=== PATIENT | female | born 1970 | race Caucasian/White ===

== ENCOUNTER 2016-05-10 17:04 | Inpatient (IN) | payer OTHER ==
[~2016-05-10] VITALS: Ht 157.5 cm; Wt 77.0 kg
[~2016-05-10 17:04] MED LIST: FLUC150T17 PO; HYDR-3498 PO; IBUP-1542 PO; LORA-441 PO; ONDA4TAB8 PO; ULT50 PO
[2016-05-10 21:21] LABS: ADD UMIC YES; URINE BILIRUBIN (Dip) NEGATIVE (NEGATIVE); URINE BLOOD (Dip) TRACE (NEGATIVE); URINE COLOR LT. YELLOW (YELLOW); URINE GLUCOSE (Dip) NEGATIVE (NEGATIVE); URINE KETONES (Dip) NEGATIVE (NEGATIVE); URINE LEUKOCYTE ESTERASE (Dip) TRACE (NEGATIVE); URINE NITRITE (Dip) NEGATIVE (NEGATIVE); URINE TOTAL PROTEIN (Dip) NEGATIVE (NEGATIVE); URINE UROBILINOGEN (Dip) 0.2 E.U./dL (0.1-1.0)
[2016-05-10 21:46] LABS: MUCUS,URINE FEW; SQUAMOUS EPITHELIAL CELL,UR FEW; URINE RBCS 0-2 /HPF (0)
[2016-05-10 21:47] LABS: BACTERIA,URINE FEW
[2016-05-10 22:20] LABS: BASOPHIL # 0.1 10^3/ul (0.0-0.1); BASOPHILS % 0.6 % (0.0-2.0); EOSINOPHILS # 0.1 10^3/ul (0.0-0.5); HEMATOCRIT 37.9 % (37.0-47.0); HEMOGLOBIN 12.6 g/dl (12.0-16.0); LYMPHOCYTES # 2.6 10^3/ul (0.8-2.9); LYMPHOCYTES % 27.8 % (15.0-51.0); MEAN CORPUSCULAR HEMOGLOBIN 29.9 pg (29.0-33.0); MEAN CORPUSCULAR HGB CONC 33.2 g/dl (32.0-37.0); MEAN CORPUSCULAR VOLUME 90.1 fl (82.0-101.0); MONOCYTE # 0.7 10^3/ul (0.3-0.9); MONOCYTES % 7.6 % (0.0-11.0); PLATELET COUNT 309 10^3/UL (140-440); RED BLOOD COUNT 4.21 10^6/ul (4.20-5.40); RED CELL DISTRIBUTION WIDTH 13.3 % (11.5-14.5); UNCORRECTED WBC 9.5 10^3/ul (4.8-10.8); WHITE BLOOD COUNT 9.5 10^3/ul (4.8-10.8)
[2016-05-10 22:21] LABS: CONDITION 1
[2016-05-10 22:36] LABS: ALBUMIN 4.3 g/dl (3.3-4.9)
[2016-05-10 22:39] LABS: BILIRUBIN,INDIRECT 0.1 mg/dl (0-1.1); BILIRUBIN,TOTAL 0.1 mg/dl (0.2-1.3); CREATININE 0.55 mg/dl (0.44-1.00)
[2016-05-10 22:40] LABS: ALBUMIN/GLOBULIN RATIO 1.22; CALCIUM 9.4 mg/dl (8.4-10.2); TOTAL PROTEIN 7.8 g/dl (6.1-8.1)
--- NOTE | 2016-05-10 22:48 | RADRPT ---
PROCEDURE: Ultrasound of the abdomen. CLINICAL INDICATION: Right upper quadrant pain. TECHNIQUE: Sonographic images of the abdomen were performed. COMPARISON: CT scan 05/25/2014 FINDINGS: Liver: There is a 1.7 x 1.6 x 2 cm cyst within the central left hepatic lobe. There is a 1.8 x 1.7 x 1.4 cm mildly echogenic lesion within the right hepatic lobe, likely a hemangioma, as seen on pre vious CT. The liver is otherwise normal in echogenicity and size, measuring approximately 16.7 cm. T he hepatic veins and portal veins are patent with appropriate directional flow. No intrahepatic duct al dilatation is seen. Gallbladder: Several stones are noted within the gallbladder. There is gallbladder wall thickening measuring up to 7.5 mm. No pericholecystic free fluid is seen. The common duct measures 4.0 mm. Pancreas: There is limited evaluation of the pancreatic body and tail. The visualized portions of the pancreas are unremarkable. Kidneys: The right kidney measures 9.6 x 3.8 x 4.6 cm. There is normal corticomedullary differentia tion. There is no evidence of renal calculus or hydronephrosis. IVC: The visualized portion of the inferior vena cava is unremarkable. Aorta: Normal in size. Free fluid: None. IMPRESSION: Cholelithiasis with gallbladder wall thickening suggestive of cholecystitis in the appropriate clini rose setting. Right hepatic hemangioma and left hepatic cyst. RPTAT: HIKT .Atul Coronel MD, Date Time Electronically viewed and signed by .Atul Coronel MD, on 05/10/2016 22:48 .T/
--- NOTE | 2016-05-10 23:51 | ERA ---
ER Documentation Chief Complaint Date/Time DATE: 05/10/16 TIME: 23:50 Chief Complaint HAD ABDOMINAL DISTENTION AND NOW HAS DARK STOOL NOW HPI This is a 46-year-old woman with abdominal distention and possible dark stools over the past 2-3 days. She denies any fevers or chills. Abdominal pain is located mostly in the right upper quadrant epigastric region. N mild nausea but no vomiting. No fevers no chills. No other current complaints. ROS All systems reviewed and are negative except as per history of present illness. Medications Home Meds Active Scripts Fluconazole* (Diflucan*) 150 Mg Tablet, 150 MG PO ONCE, #1 TAB Prov:REY TAVERA NP 01/03/16 Ibuprofen* (Motrin*) 600 Mg Tab, 600 MG PO Q6, #30 TAB Prov:REY TAVERA NP 01/03/16 Hydrocodone Bit-Acetaminophen* ([place]*) 5-325 Mg Tab, 1 TAB PO Q6 Y for PAIN, # 20 TAB Prov:AJCK HUNTER PA-C 11/27/15 Lorazepam* (Ativan*) 0.5 Mg Tablet, 0.5 MG PO Q8, #10 TAB Prov:SAURAV DOS SANTOS PA-C 11/27/15 Ondansetron Hcl* (Zofran*) 4 Mg Tablet, 4 MG PO Q6H for NAUSEA AND/OR VOMITING, #20 TAB Prov:SAURAV DOS SANTOS PA-C 11/27/15 Ibuprofen* (Motrin*) 600 Mg Tab, 600 MG PO Q6H Y for PAIN for 10 Days, TAB Prov:LELIA HAY NP 07/12/15 Tramadol HCl (Tramadol HCl) 50 Mg Tablet, 50 MG PO BID, #20 TAB Prov:LELIA HAY I. [employer] 07/12/15 Allergies Allergies: Coded Allergies: No Known Allergies (Unverified Allergy, Unknown, 09/16/13) PMhx/Soc History of Surgery: No Hx Respiratory Disorders: Yes (ASTHMA) Hx Alcohol Use: No Hx Substance Use: No Hx Tobacco Use: No Physical Exam Vitals Vital Signs Date Time Temp Pulse Resp B/P Pulse Ox O2 Delivery O2 Flow Rate FiO2 05/10/16 17:23 98.4 78 18 124/74 100 Physical Exam Const: [] Head: Atraumatic Eyes: Normal Conjunctiva ENT: Normal External Ears, Nose and Mouth. Neck: Full range of motion..~ No meningismus. Resp: Clear to auscultation bilaterally Cardio: Regular rate and rhythm, no murmurs Abd: Soft, non tender, non distended. Normal bowel sounds Skin: No petechiae or rashes Back: No midline or flank tenderness Ext: No cyanosis, or edema Neur: Awake and alert Psych: Normal Mood and Affect Result Diagram: 05/10/16220405/10/162204 Results 24 hrs Laboratory Tests Test 05/10/16 21:04 05/10/16 22:05 Urine Bacteria FEW Urine Bilirubin NEGATIVE Urine Clarity CLEAR Urine Color LT. YELLOW Urine Glucose NEGATIVE% Urine Hemoglobin TRACE Urine Ketones NEGATIVE Urine Leukocyte Esterase TRACE Urine Microscopic RBC 0-2/HPF Urine Microscopic WBC 0-2/HPF Urine Mucus FEW Urine Nitrite NEGATIVE Urine Specific [place] 1.025 Urine Squamous Epithelial Cells FEW Urine Total Protein NEGATIVE Urine Urobilinogen 0.2 E.U./dL Urine pH 6.0 Alanine Aminotransferase (ALT/SGPT) 24IU/L Albumin 4.3g/dl Albumin/Globulin Ratio 1.22 Alkaline Phosphatase 75IU/L Anion Gap 18 Aspartate Amino Transf (AST/SGOT) 18IU/L Basophils # 0.110^3/ul Basophils % 0.6% Blood Urea Nitrogen 12mg/dl Calcium Level 9.4mg/dl Carbon Dioxide Level 26mmol/L Chloride Level 104mmol/L Creatinine 0.55mg/dl Direct Bilirubin 0.00mg/dl Eosinophils # 0.110^3/ul Eosinophils % 1.0% Globulin 3.50g/dl Glucose Level 89mg/dl Hematocrit 37.9% Hemoglobin 12.6g/dl Indirect Bilirubin 0.1mg/dl Lipase 128U/L Lymphocytes # 2.610^3/ul Lymphocytes % 27.8% Mean Corpuscular Hemoglobin 29.9pg Mean Corpuscular Hemoglobin Concent 33.2g/dl Mean Corpuscular Volume 90.1fl Mean Platelet Volume 8.0fl Monocytes # 0.710^3/ul Monocytes % 7.6% Neutrophils # 6.010^3/ul Neutrophils % 63.0% Nucleated Red Blood Cells # 0.010^3/ul Nucleated Red Blood Cells % 0.0/100WBC Platelet Count 78228^3/UL Potassium Level 4.0mmol/L Red Blood Count 4.2110^6/ul Red Cell Distribution Width 13.3% Sodium Level 144mmol/L Total Bilirubin 0.1mg/dl Total Protein 7.8g/dl White Blood Count 9.510^3/ul Current Medications Medications (Trade) Dose Ordered Sig/Edwige Route PRN Reason Start Time Stop Time Status Last Admin Dose Admin Potassium Chloride/Dextrose/ Sod Cl (D5-1/2ns + KCl 20 Meq) 1,000 ml @ 100 mls/hr Q10H IV 05/10/16 23:42 IV Flush (NS 3 ml) 3 ml PER PROTOCOL IV 05/11/16 00:00 Ondansetron HCl (Zofran Inj) 4 mg Q6H PRN IV NAUSEA AND/OR VOMITING 05/11/16 00:00 Acetaminophen (Tylenol Tab) 650 mg Q6H PRN PO PAIN LEVEL 1-3 OR FEVER 05/11/16 00:00 Acetaminophen/ Hydrocodone Bitart ([place] (5/325)) 1 tab Q6H PRN PO MODERATE PAIN LEVEL 4-6 05/11/16 00:00 Morphine Sulfate (morphine) 2 mg Q4H PRN IV SEVERE PAIN LEVEL 7-10 05/11/16 00:00 Docusate Sodium (Colace) 100 mg Q12H PRN PO CONSTIPATION 05/11/16 00:00 Zolpidem Tartrate 5 mg 5 mg QHS PRN PO SLEEP 05/11/16 00:00 UNV Piperacillin Sod/ Tazobactam Sod (Zosyn 3.375gm/ 100 ml (Pmx)) 100 ml @ 200 mls/hr Q6 IVPB 05/11/16 00:00 Procedures/MDM Right upper quadrant ultrasound shows no evidence of cholecystitis. Please radiologist full dictation for report. Medical decision making: Is a 46 year female abdominal pain. Patient is guaiac negative. His H&H is stable. She does have evidence of cholecystitis. Patient will be admitted to hospitalist Dr. Saucedo. Dr. Wiggins will consult from surgery. Departure Diagnosis: Primary Impression: Abdominal pain Qualified Code: R10.11 - Right upper quadrant abdominal pain Additional Impression: Cholecystitis Condition: Serious RADAMES VERDIN May 10, 2016 23:51
[2016-05-11] MEDS ORDERED: DOCUSATE SODIUM 100 MG CAP PO PRN
[2016-05-11] MEDS ORDERED: NACL 0.9% 3 ML SYG IV SCH
[2016-05-11] MEDS ORDERED: ZOLPIDEM 5 MG TAB PO PRN
[2016-05-11] MEDS ORDERED: ACETAMINOPHEN 325 MG TAB PO PRN
[2016-05-11 00:21] VITALS: Ht 157.5 cm; Wt 77.0 kg
[2016-05-11 00:22] VITALS: BP 120/60; PULSE 68; RESP 18
[2016-05-11] MEDS: D5W-0.45 NACL + KCL 20 MEQ 1,000 ML IV SCH ×3 (00:58→14:57)
[2016-05-11] MEDS: PIPER-TAZO 3.375 GM IV (PMX) 100 ML IVPB SCH ×5 (00:58→23:05)
[2016-05-11] MEDS: morphine 2 MG INJ IV PRN (02:04)
[2016-05-11 05:36] LABS: POTASSIUM 3.6 mmol/L (3.5-5.1)
[2016-05-11 05:38] LABS: CREATININE 0.57 mg/dl (0.44-1.00)
[2016-05-11 05:39] LABS: CALCIUM 8.7 mg/dl (8.4-10.2); CHOL/HDL RATIO 4.7 RATIO; MAGNESIUM 1.9 mg/dl (1.7-2.5)
[2016-05-11 05:41] LABS: BASOPHILS % 0.3 % (0.0-2.0); EOSINOPHILS # 0.1 10^3/ul (0.0-0.5); EOSINOPHILS % 1.6 % (0.0-7.0); HEMATOCRIT 36.4 % (37.0-47.0); HEMOGLOBIN 12.3 g/dl (12.0-16.0); LYMPHOCYTES # 2.9 10^3/ul (0.8-2.9); LYMPHOCYTES % 32.5 % (15.0-51.0); MEAN CORPUSCULAR HGB CONC 33.7 g/dl (32.0-37.0); MEAN CORPUSCULAR VOLUME 89.2 fl (82.0-101.0); MEAN PLATELET VOLUME 8.3 fl (7.4-10.4); MONOCYTE # 0.6 10^3/ul (0.3-0.9); MONOCYTES % 7.3 % (0.0-11.0); NEUTROPHIL # 5.2 10^3/ul (1.6-7.5); NEUTROPHILS % 58.3 % (39.0-77.0); PLATELET COUNT 285 10^3/UL (140-440); RED BLOOD COUNT 4.08 10^6/ul (4.20-5.40); RED CELL DISTRIBUTION WIDTH 13.3 % (11.5-14.5); UNCORRECTED WBC 8.9 10^3/ul (4.8-10.8); WHITE BLOOD COUNT 8.9 10^3/ul (4.8-10.8)
[2016-05-11 05:44] LABS: CONDITION 1
[2016-05-11 06:41] VITALS: BP 105/55; PULSE 75; RESP 18
--- NOTE | 2016-05-11 07:03 | HP ---
DATE OF ADMISSION: 05/10/2016 TIME: 6:15 a.m. CHIEF COMPLAINT: Abdominal pain. HISTORY OF PRESENT ILLNESS: The patient is a 46-year-old female with a history of known cholelithia sis diagnosed approximately 2-1/2 years ago. The patient was supposed to get a laparoscopic cholecy stectomy, but was lost to follow up. The patient has had 3 episodes of severe right upper quadrant pain since her diagnosis 2-1/2 years ago, but this current third episode is worse than prior episode s. She does report some darkening of her stool as well, but denies any nausea or vomiting. She sta angelo that the pain radiates to her right back and into her shoulder. In the ED, the patient had a ga llbladder ultrasound that showed cholelithiasis with gallbladder wall thickening suggestive of leila cystitis. The patient has no other complaints at this time. PAST MEDICAL HISTORY: Cholelithiasis. PAST SURGICAL HISTORY: Denies. HOME MEDICATIONS: 1. Diflucan. 2. [place]. 3. Ibuprofen. 4. Ativan. 5. Zofran. 6. Tramadol. ALLERGIES: NO KNOWN DRUG ALLERGIES. FAMILY HISTORY: Grandmother with pancreatic cancer. SOCIAL HISTORY: Denies any alcohol, tobacco, or drug abuse. REVIEW OF SYSTEMS: A 12-point review of systems negative except for that as in HPI. PHYSICAL EXAMINATION: VITAL SIGNS: Temperature is 97.7, pulse 68, respiratory rate 18, BP is 120/60, saturation 98% on ro om air. GENERAL: No acute distress, alert and oriented. HEENT: Normocephalic, atraumatic. LUNGS: Clear to auscultation. CARDIOVASCULAR: Regular rate and rhythm. ABDOMEN: Tender to palpation in the right upper quadrant, nondistended, soft. EXTREMITIES: No clubbing, cyanosis, or edema. LABORATORIES: White count is 8.9, hemoglobin 12.3, platelets are 285, chemistry within normal limit s. UA within normal limits except for trace leukocyte esterase, WBC . DIAGNOSTICS: Gallbladder ultrasound shows cholelithiasis with likely cholecystitis. ASSESSMENT AND PLAN: 1. Abdominal pain, likely secondary to cholecystitis. The patient has no fever, no white count, do es have a known history of cholelithiasis and has significant pain in the right upper quadrant. I s tarted the patient on Zosyn. Dr. Wiggins of surgery has been consulted. We will follow up with his recommendations. We will treat pain with morphine as needed. 2. Melena. The patient does report darkening of her stool. She denies any upper gastrointestinal bleed. She does take Motrin for pain control. We will check a fecal occult blood test. Consider g etting a GI consultation if the melena persists. 3. Prophylaxis with SCDs. Dictated By: JANUSZ GARVEY MD BS/NTS Conf#: [id number] DID#: [id number]
[2016-05-11 07:15] VITALS: BP 98/57; RESP 18
[2016-05-11] MEDS: ONDANSETRON 4 MG INJ IV PRN ×2 (09:18→15:36)
[2016-05-11 09:33] VITALS: BP 99/56; PULSE 72; RESP 18
--- NOTE | 2016-05-11 14:58 | QN ---
Documentation Comment Reviewed labs. Examined patient. Appropriate orders put in. Plan of care was explained to the patient. Case discussed with Dr. Gan. MIKE SHANKAR NP May 11, 2016 14:58
[2016-05-11] MEDS: PANTOPRAZOLE 40 MG INJ IV SCH (17:49)
[2016-05-11 20:09] VITALS: BP 100/53; RESP 18
[2016-05-12] VITALS (19 sets, daily range): BP systolic 90–131; BP diastolic 55–69; PULSE 65–80; RESP 12–75
[2016-05-12] MEDS: D5W-0.45 NACL + KCL 20 MEQ 1,000 ML IV SCH ×3 (01:57→09:57)
[2016-05-12] MEDS: morphine 2 MG INJ IV PRN ×2 (03:30→16:02)
--- NOTE | 2016-05-12 03:54 | CONS ---
DATE OF ADMISSION: 05/10/2016 DATE OF CONSULTATION: 05/11/2016 TYPE OF CONSULTATION: Surgical. REFERRING PHYSICIAN: Dr. Rafita Hsieh CHIEF COMPLAINT: 1. Abdominal pain. 2. Cholelithiasis. 3. Cholecystitis. 4. BMI 31. HISTORY OF PRESENT ILLNESS: Ms. Darlene Aguilar is a 46-year-old female with 4-year history of gallstone s that have been symptomatic who has had pain on and off; however, she presents recently with 2 to 3 days of abdominal pain and bloating associated with dark stools. She denies any fevers or chills. She denies any vomiting but has nausea. No chest pain, shortness of breath. No visual or neurolog ic changes. No dysuria or vaginal discharge. No trauma or sick contacts. Her pain is crampy, most ly in the epigastric and right upper quadrant, without radiation. In the emergency room, she had labs which were mostly normal; however, ultrasound shows gallbladder wall thickening with cholelithiasis. The patient is admitted, and surgical consult is obtained for further evaluation and treatment. PAST MEDICAL HISTORY: 1. Cholelithiasis, symptomatic. 2. Cholecystitis, probably chronic. 3. BMI of 31. 4. Asthma. 5. Right hepatic hemangioma. 6. Left hepatic cyst. 7. Positive UA with possible UTI. PAST SURGICAL HISTORY: Denies. MEDICATIONS: As per MAR. ALLERGIES: NONE. SOCIAL HISTORY: Denies alcohol, drugs, or tobacco. FAMILY HISTORY: Grandmother with pancreatic cancer. REVIEW OF SYSTEMS: A 12-point review of systems is negative other than what is mentioned in HPI. N o weight changes. PHYSICAL EXAMINATION: VITAL SIGNS: Temperature is 97.1, pulse 70, blood pressure 99/56, saturating 98% on room air. BMI is 31. GENERAL: No acute distress, obese, comfortable. HEENT: Pupils equal and reactive. No scleral icterus. Mucous membranes are moist. NECK: Supple without JVD. No crepitus. Trachea is midline. PULMONARY: Normal respiratory effort. No wheezing. Nonlabored. CARDIAC: S1, S2 present, regular and normal rhythm. ABDOMEN: Minimal tenderness in the epigastric and right upper quadrant without Cason's. No reboun d or guarding. Obese. EXTREMITIES: No edema. VASCULAR: Cap refill less than 2 seconds. NEUROLOGIC: Alert, oriented, moves all 4 extremities grossly. PSYCHIATRIC: Normal mood and affect. LYMPHATIC: Normal cervical and inguinal lymph nodes, nonpalpable. LABORATORY DATA: WBCs is 8.9, hemoglobin is 12. LFTs are normal. UA with positive trace leukocyte esterase. RADIOGRAPHIC: As per chart and HPI. ASSESSMENT AND PLAN: Ms. Darlene Aguilar is a 46-year-old female. 1. Abdominal pain secondary to symptomatic cholelithiasis and possible mild cholecystitis. Continu e antibiotics, IV fluids, and encouraged to undergo laparoscopic cholecystectomy. The patient is op en to having surgery during this hospitalization. 2. Dark stool with possible melena. Recommend GI consultation and stool studies. We will await ev aluation of that prior to surgical treatment of her gallbladder disease. 3. BMI of 31. The patient is highly encouraged to improve her diet and exercise to improve her [facility] health status. 4. Asthma. Continue medical management. 5. Trace leukocyte esterase on UA with probable urinary tract infection. Continue antibiotics. Thank you very much for consulting me in this patient's care. Dictated By: HENRRY BROWN/RAYSHAWN Conf#: [id number] DID#: [id number]
--- NOTE | 2016-05-12 04:15 | RADRPT ---
PROCEDURE: MRCP. CLINICAL INDICATION: Evaluate for choledocholithiasis. TECHNIQUE: MRCP was performed on a high-resolution, high Luann field strength scanner. Patient wa s examined without contrast. 3-D coronal rotating MIP images of the biliary tree are available for review. COMPARISON: Right upper quadrant abdominal ultrasound of 05/10/2016 FINDINGS: There is cholelithiasis. There is diffuse gallbladder wall edema apparent. The biliary tree is not d ilated. No intrahepatic nor extrahepatic biliary dilatation is present. No filling defect or choled ocholithiasis is seen. There is no extrahepatic bile duct stricture or obstruction seen. The pancrea tic duct, as visualized, is unremarkable. The patient has known hepatic cavernous hemangiomas and c yst. Small umbilical hernia containing fat. IMPRESSION: Cholelithiasis. Diffuse gallbladder wall edema. No choledocholithiasis seen. Please see above. RPTAT: HJES .Satinder Armenta MD, MD Date Time Electronically viewed and signed by .Satinder Armenta MD, on 05/12/2016 04:15 .S/
[2016-05-12] MEDS: PIPER-TAZO 3.375 GM IV (PMX) 100 ML IVPB SCH ×3 (05:18→17:33)
[2016-05-12] MEDS: PANTOPRAZOLE 40 MG INJ IV SCH ×2 (05:18→17:36)
[2016-05-12 05:26] LABS: BASOPHILS % 0.4 % (0.0-2.0); EOSINOPHILS # 0.1 10^3/ul (0.0-0.5); EOSINOPHILS % 1.3 % (0.0-7.0); HEMATOCRIT 35.1 % (37.0-47.0); HEMOGLOBIN 11.9 g/dl (12.0-16.0); LYMPHOCYTES # 2.5 10^3/ul (0.8-2.9); MEAN CORPUSCULAR HEMOGLOBIN 30.2 pg (29.0-33.0); MEAN CORPUSCULAR HGB CONC 33.9 g/dl (32.0-37.0); MEAN CORPUSCULAR VOLUME 89.3 fl (82.0-101.0); MEAN PLATELET VOLUME 8.4 fl (7.4-10.4); MONOCYTE # 0.6 10^3/ul (0.3-0.9); MONOCYTES % 8.7 % (0.0-11.0); NEUTROPHIL # 4.1 10^3/ul (1.6-7.5); NEUTROPHILS % 55.6 % (39.0-77.0); PLATELET COUNT 292 10^3/UL (140-440); RED BLOOD COUNT 3.93 10^6/ul (4.20-5.40); RED CELL DISTRIBUTION WIDTH 13.2 % (11.5-14.5); UNCORRECTED WBC 7.3 10^3/ul (4.8-10.8); WHITE BLOOD COUNT 7.3 10^3/ul (4.8-10.8)
[2016-05-12 05:28] LABS: ALBUMIN 3.4 g/dl (3.3-4.9)
[2016-05-12 05:29] LABS: POTASSIUM 3.9 mmol/L (3.5-5.1)
[2016-05-12 05:31] LABS: CONDITION 1
[2016-05-12 05:39] LABS: MAGNESIUM 2.1 mg/dl (1.7-2.5); PHOSPHORUS 4.3 mg/dl (2.5-4.9)
[2016-05-12 05:44] LABS: CREATININE 0.75 mg/dl (0.44-1.00)
[2016-05-12 05:45] LABS: ALBUMIN/GLOBULIN RATIO 1.06; BILIRUBIN,INDIRECT 0.6 mg/dl (0-1.1); BILIRUBIN,TOTAL 0.6 mg/dl (0.2-1.3); CALCIUM 8.3 mg/dl (8.4-10.2); TOTAL PROTEIN 6.6 g/dl (6.1-8.1)
[2016-05-12] MEDS ORDERED: KETOROLAC 30 MG INJ IV PRN (06:30)
[2016-05-12] MEDS ORDERED: BUPIVACAINE 0.25%/EPI (SDV) 30 ML INJ INJ ONE (09:10)
[2016-05-12] MEDS ORDERED: LIDOCAINE 1% (MPF) 30 ML INJ INJ ONE (09:10)
[2016-05-12] MEDS ORDERED: BUPIVACAINE 0.25%/EPI (SDV) 30 ML INJ ONE (09:24)
[2016-05-12] MEDS ORDERED: LIDOCAINE 1% (MPF) 30 ML INJ ONE (09:24)
--- NOTE | 2016-05-12 09:25 | PN ---
DATE: 05/12/2016 HOSPITALIST PROGRESS NOTE SUBJECTIVE DATA: Abdominal pain well controlled with analgesics. Denies any nausea or vomiting. The patient is being taken to the OR for cholecystectomy. OBJECTIVE DATA: VITAL SIGNS: Temperature 98.1, pulse rate 69, respiratory rate 18, blood pressure 102/64, oxygen saturation 98% on room air. GENERAL: This is a slightly obese female lying in bed in no apparent distress. HEENT: Head normocephalic and atraumatic. Eyes: Anicteric sclerae. Conjunctivae clear. ENT: Nasal septum is midline. Oral mucosa is dry. NECK: Supple. No JVD noticed. RESPIRATORY: Bilaterally clear to auscultation. No adventitious breath sounds heard. No use of accessory muscles of respiration. CARDIAC: Regular rate and rhythm. No murmurs. ABDOMEN: Soft. Tenderness in the right upper quadrant and epigastric area. Bowel sounds hypoactive in all 4 quadrants. GENITOURINARY: Deferred. EXTREMITIES: No cyanosis, no clubbing, no edema. Peripheral pulses are palpable. NEUROLOGIC: The patient is awake, alert and oriented. Cranial nerves are grossly intact. LABORATORY AND DIAGNOSTIC DATA: WBC 7.3, hemoglobin 11.9, hematocrit 35.1, platelet count 292 sodium 143, potassium 3.9, chloride 106, carbon dioxide 26, anion gap 14, BUN 9, creatinine 0.75, glucose 94, calcium 9.3, phosphorus 4.3, magnesium 2.1. ASSESSMENT AND PLAN: 1. Symptomatic cholelithiasis. MRCP negative for any choledocholithiasis. The patient is scheduled for cholecystectomy today. Continue pain control. Continue empiric antibiotics. 2. Dyslipidemia. Elevated total cholesterol and suboptimal LDL. Will reinforce a low-cholesterol diet. 3. Melena. This could be probably drug induced. The patient verbalized that the patient was taking Pepto-Bismol for her abdominal discomfort. This can often cause black stools. Stool for OB pending at this time. The patient's H and H remains stable. If the patient's stool for OB is positive, will call a gastroenterology consult. 4. Obesity. BMI of 31 kg/m sq. Will advise weight reduction. 5. Fluid, electrolytes, and nutrition. Continue n.p.o. Continue IV fluids. 6. Deep venous thrombosis prophylaxis. Bilateral sequential compression devices. 7. Gastrointestinal prophylaxis. Proton pump inhibitors. PLAN: Continue pain control. Continue antibiotics. Await surgical intervention. Await stool for OB. Case discussed with Dr. Gan. MIKE GAN MD, AM/RAYSHAWN Conf#: [id number] DID#: [id number] MTDD
[2016-05-12] MEDS ORDERED: MIDAZOLAM 1 MG/ML 2 ML INJ ONE (09:54)
[2016-05-12] MEDS ORDERED: PROPOFOL 100 ML ONE (09:54)
[2016-05-12] MEDS ORDERED: PROPOFOL 20 ML ONE (09:54)
[2016-05-12] MEDS ORDERED: ONDANSETRON 4 MG INJ ONE (09:54)
[2016-05-12] MEDS ORDERED: DEXAMETHASONE 4 MG/ML 1 ML INJ ONE (09:54)
[2016-05-12] MEDS ORDERED: MEPERIDINE 25 MG INJ IV PRN (10:30)
[2016-05-12] MEDS ORDERED: DIPHENHYDRAMINE 50 MG INJ IV PRN (10:30)
[2016-05-12] MEDS ORDERED: EPHEDrine SULFATE 50 MG/5 ML SYG IV PRN (10:30)
[2016-05-12] MEDS ORDERED: ONDANSETRON 4 MG INJ IV PRN (10:30)
[2016-05-12] MEDS ORDERED: HYDROmorphONE (0.2 MG/ML) 10ML SYG IV PRN ×3 (10:30)
[2016-05-12] MEDS ORDERED: KETOROLAC 30 MG INJ IV ONE (10:30)
[2016-05-12] MEDS ORDERED: GLYCOPYRROLATE 0.4 MG INJ ONE (10:35)
[2016-05-12] MEDS ORDERED: NEOSTIGMINE 3 MG/3 ML SYRINGE ONE (10:35)
--- NOTE | 2016-05-12 11:08 | PN ---
Date/Time of Note Date/Time of Note DATE: 05/12/16 TIME: 11:05 Assessment/Plan Lines/Catheters IV Catheter Type (from [facility]): Peripheral IV Assessment/Plan Chief Complaint/Hosp Course 1. Abdominal pain secondary to symptomatic cholelithiasis and mild cholecystitis. Continue antibiotics, IV fluids, and laparoscopic cholecystectomy today. 2. Dark stool with possible melena. Recommend GI consultation and stool studies. 3. BMI of 31. The patient is highly encouraged to improve her diet and exercise to improve her overall health status. 4. Asthma. Continue medical management. 5. Trace leukocyte esterase on UA with probable urinary tract infection. Continue antibiotics. 6. Anemia. -Monitor Thank you Problems: Subjective 24 Hr Interval Summary Pain. No f/c. No n/v. No cp/sob. No cough. No haile. No dizzy/visual or neuro changes. No dysuria. Bowel function. Labs and MRCP noted. Exam/Review of Systems Vital Signs Vitals Vital Signs Date Time Temp Pulse Resp B/P Pulse Ox O2 Delivery O2 Flow Rate FiO2 05/12/16 08:36 98.1 69 18 102/64 98 Room Air Intake and Output 05/11/16 05/11/16 05/12/16 15:00 23:00 07:00 Intake Total 400 ml 350 ml 1810 ml Balance 400 ml 350 ml 1810 ml Exam Free Text/Dictation GENERAL: No acute distress, obese, comfortable. HEENT: Pupils equal and reactive. No scleral icterus. Mucous membranes are moist. NECK: Supple without JVD. No crepitus. Trachea is midline. PULMONARY: Normal respiratory effort. No wheezing. Nonlabored. CARDIAC: S1, S2 present, regular and normal rhythm. ABDOMEN: Minimal tenderness in the epigastric and right upper quadrant without Cason's. No rebound or guarding. Obese. EXTREMITIES: No edema. VASCULAR: Cap refill less than 2 seconds. NEUROLOGIC: Alert, oriented, moves all 4 extremities grossly. PSYCHIATRIC: Normal mood and affect. LYMPHATIC: Normal cervical and inguinal lymph nodes, nonpalpable. Results Result Diagram: 05/12/1641905/12/16 042 HENRRY PABLO MD May 12, 2016 11:08
[2016-05-12] MEDS: FENTAnyl 50 MCG/ML VIAL IV PRN ×4 (11:13→11:52)
--- NOTE | 2016-05-12 11:13 | OPR ---
Date/Time of Note Date/Time of Note DATE: 05/12/16 TIME: 11:08 Operative Report Procedure Date: May 12, 2016 Preoperative Diagnosis 1. Cholelithiasis, symptomatic 2. Acute cholecystitis 3. BMI 31 4. Abdominal pain Postoperative Diagnosis Same Operation Performed 1. 3 port laparoscopic cholecystectomy 2. Laparoscopic liver wedge resection biopsy 3. Local anesthetic [place], [id number] 4. Laparoscopic guided transversus abdominis plane block, bilateral Surgeon: HENRRY PABLO MD Anesthesia: general Anesthesiologist: ROSS WESTON M.D. Estimated Blood Loss: 0 - 10 ml's Specimens Gallbladder Liver Tubes/Drains None Pt Condition Post Procedure: stable Disposition: PACU Indications Per notes. Risks include but are not limited to bleeding, infection, abscess, seroma, damage to intestines, damage to the liver, damage to biliary tree, hernia formation, chronic pain, biloma, need for reoperations or further surgeries, MA , stroke, PE, DVT, pneumonia, organ failures, or even . Procedure Description Patient was brought and placed supine on the operating table SCDs were placed, preoperative antibiotics were administered, all pressure points were well-padded , and after induction of anesthesia patient was prepped and draped in usual sterile fashion and timeout was performed. Incision was made in the supraumbilical region, Veress was safely inserted, and after a negative SIP test , abdomen was insufflated to 15mmHg. Veress was removed and 5mm port was safely inserted. Laparoscopy was performed with a 5 mm 30 scope. No injuries were identified. The liver looks somewhat abnormal color. Gallbladder is distended with evidence of infection. 12 mm port is placed in subxiphoid under direct visualization followed by another 5 mm port in the right upper quadrant. All port sites were injected with quarter percent Marcaine with epi and 1% lidocaine prior to any incisions. Bilateral transversus abdominis plane block was performed under laparoscopic visualization to aid with pain control intra-and postoperatively. Patient was placed in reverse Trendelenburg and right side up on gallbladder was retracted superolaterally. The gallbladder was large and distended. Using electrocautery and blunt dissection I was able to identify the cystic artery and cystic duct. The duct tapered into the gallbladder. Full critical angle view was identified. Both structures were clipped twice proximally and once distally and transected. The gallbladder was taken off the liver with electrocautery. Hemostasis was obtained. Gallbladder was placed in an Endo Catch bag and removed through the subxiphoid port site. There was complete hemostasis. Due to the abnormality of the liver decision was made to perform liver wedge resection which was done with electrocautery and scissor with complete hemostasis right after. The specimen was sent to pathology for further evaluation. 12 mm made port site fascia was closed with Endo Close of an 0 Vicryl in a [id number] manner. Ports and CO2 were removed under direct visualization. Next complete hemostasis. Wounds were thoroughly irrigated skin was closed with 4-0 Monocryl in subcuticular fashion. Dermabond was applied. Patient was extubated and transferred to recovery room in stable condition and all counts were correct and the end of the operation 2. HENRRY PABLO MD May 12, 2016 11:13
[2016-05-12] MEDS: ONDANSETRON 4 MG INJ IV PRN (22:30)
[2016-05-12] MEDS: HYDROCODONE/APAP (5/325) TAB PO PRN (22:30)
[2016-05-13] MEDS: PIPER-TAZO 3.375 GM IV (PMX) 100 ML IVPB SCH (00:17)
[2016-05-13 05:29] VITALS: BP 104/58; RESP 18
[2016-05-13 05:45] LABS: ALBUMIN 3.3 g/dl (3.3-4.9)
[2016-05-13 05:46] LABS: POTASSIUM 3.6 mmol/L (3.5-5.1)
[2016-05-13 05:48] LABS: ALBUMIN/GLOBULIN RATIO 1.13; BILIRUBIN,INDIRECT 0.3 mg/dl (0-1.1); BILIRUBIN,TOTAL 0.3 mg/dl (0.2-1.3); CREATININE 0.59 mg/dl (0.44-1.00); TOTAL PROTEIN 6.2 g/dl (6.1-8.1)
[2016-05-13 05:57] LABS: BASOPHILS % 0.4 % (0.0-2.0); HEMATOCRIT 33.6 % (37.0-47.0); HEMOGLOBIN 11.4 g/dl (12.0-16.0); LYMPHOCYTES # 1.8 10^3/ul (0.8-2.9); LYMPHOCYTES % 18.7 % (15.0-51.0); MEAN CORPUSCULAR HEMOGLOBIN 30.4 pg (29.0-33.0); MEAN CORPUSCULAR HGB CONC 33.9 g/dl (32.0-37.0); MEAN CORPUSCULAR VOLUME 89.8 fl (82.0-101.0); MEAN PLATELET VOLUME 8.5 fl (7.4-10.4); MONOCYTE # 0.7 10^3/ul (0.3-0.9); MONOCYTES % 7.6 % (0.0-11.0); NEUTROPHIL # 6.9 10^3/ul (1.6-7.5); NEUTROPHILS % 73.3 % (39.0-77.0); PLATELET COUNT 269 10^3/UL (140-440); RED BLOOD COUNT 3.75 10^6/ul (4.20-5.40); RED CELL DISTRIBUTION WIDTH 13.1 % (11.5-14.5); UNCORRECTED WBC 9.4 10^3/ul (4.8-10.8); WHITE BLOOD COUNT 9.4 10^3/ul (4.8-10.8)
[2016-05-13 06:00] LABS: CONDITION 1
[2016-05-13] MEDS: PANTOPRAZOLE 40 MG INJ IV SCH ×2 (06:01→17:23)
[2016-05-13 06:07] LABS: MAGNESIUM 2.1 mg/dl (1.7-2.5); PHOSPHORUS 3.5 mg/dl (2.5-4.9)
[2016-05-13] MEDS: HYDROCODONE/APAP (5/325) TAB PO PRN ×2 (06:16→11:10)
[2016-05-13 07:30] VITALS: BP 120/68; RESP 18
[2016-05-13 07:37] VITALS: BP 130/78; RESP 18
[2016-05-13 07:43] VITALS: BP 107/52; RESP 20
[2016-05-13 07:48] VITALS: BP 167/79; RESP 18
[2016-05-13 09:26] VITALS: BP 113/65; PULSE 78; RESP 20
--- NOTE | 2016-05-13 10:21 | PN ---
Date/Time of Note Date/Time of Note DATE: 05/13/16 TIME: 10:17 Assessment/Plan VTE Prophylaxis VTE Prophylaxis Intervention: SCD's Lines/Catheters IV Catheter Type (from Nrs): Peripheral IV Assessment/Plan Assessment/Plan 1. Symptomatic cholelithiasis. MRCP negative for any choledocholithiasis. The patient is scheduled for cholecystectomy today. Continue pain control. Continue empiric antibiotics. 2. Dyslipidemia. Elevated total cholesterol and suboptimal LDL. Will reinforce a low-cholesterol diet. 3. Melena. This could be probably drug induced. The patient verbalized that the patient was taking Pepto-Bismol for her abdominal discomfort. This can often cause black stools. Stool for OB pending at this time. The patient's H and H remains stable. If the patient's stool for OB is positive, will call a gastroenterology consult. 4. Obesity. BMI of 31 kg/m sq. Will advise weight reduction. 5. Fluid, electrolytes, and nutrition. Continue n.p.o. Continue IV fluids. 6. Deep venous thrombosis prophylaxis. Bilateral sequential compression devices. 7. Gastrointestinal prophylaxis. Proton pump inhibitors. PLAN: Continue pain control. Continue antibiotics, continue post op care, add stool softners, scheduled antiinflammatories. Subjective 24 Hr Interval Summary Free Text/Dictation patient seen c/o lots of bloating, gas, constipation Exam/Review of Systems Vital Signs Vitals Vital Signs Date Time Temp Pulse Resp B/P Pulse Ox O2 Delivery O2 Flow Rate FiO2 05/13/16 09:26 78 20 113/65 Room Air 05/13/16 07:48 98.2 90 Intake and Output 05/12/16 05/12/16 05/13/16 15:00 23:00 07:00 Intake Total 450 ml 1150 ml 480 ml Output Total 10 ml 750 ml Balance 440 ml 1150 ml -270 ml Exam Constitutional: alert, oriented Psych: anxiety Head: atraumatic, normocephalic Eyes: PERRL ENMT: mucosa pink and moist Neck: non-tender, supple Respiratory: clear to auscultation, normal air movement Cardiovascular: nl pulses, regular rate and rhythm Gastrointestinal: distended, soft, surgical scars (noted, clean and non infected ) Musculoskeletal: nl extremities to inspection Extremities: edema Neurological: No focal weakness Results Result Diagram: 05/13/1642605/13/16426 Results 24 hrs Laboratory Tests Test 05/13/16 04:27 Alanine Aminotransferase (ALT/SGPT) 71 H Albumin 3.3 Albumin/Globulin Ratio 1.13 Alkaline Phosphatase 57 Anion Gap 16 Aspartate Amino Transf (AST/SGOT) 60 H Basophils # 0.0 Basophils % 0.4 Blood Urea Nitrogen 6 L Calcium Level 8.0 L Carbon Dioxide Level 25 Chloride Level 109 Creatinine 0.59 Direct Bilirubin 0.00 Eosinophils # 0.0 Eosinophils % 0.0 Globulin 2.90 Glucose Level 84 Hematocrit 33.6 L Hemoglobin 11.4 L Indirect Bilirubin 0.3 Lymphocytes # 1.8 Lymphocytes % 18.7 Magnesium Level 2.1 Mean Corpuscular Hemoglobin 30.4 Mean Corpuscular Hemoglobin Concent 33.9 Mean Corpuscular Volume 89.8 Mean Platelet Volume 8.5 Monocytes # 0.7 Monocytes % 7.6 Neutrophils # 6.9 Neutrophils % 73.3 Nucleated Red Blood Cells # 0.0 Nucleated Red Blood Cells % 0.0 Phosphorus Level 3.5 Platelet Count 269 Potassium Level 3.6 Red Blood Count 3.75 L Red Cell Distribution Width 13.1 Sodium Level 146 H Total Bilirubin 0.3 Total Protein 6.2 White Blood Count 9.4 # Medications Medications Current Medications Ondansetron HCl (Zofran Inj) 4 mg Q6H PRN IV NAUSEA AND/OR VOMITING Last administered on 05/12/16 22:30; Admin Dose 4 MG; Start 05/11/16 at 00:00 Acetaminophen (Tylenol Tab) 650 mg Q6H PRN PO PAIN LEVEL 1-3 OR FEVER; Start at 00:00 Acetaminophen/ Hydrocodone Bitart ([place] (5/325)) 1 tab Q6H PRN PO MODERATE PAIN LEVEL 4-6 Last administered on 05/13/16 06:16; Admin Dose 1 TAB; Start 05/11 at 00:00 Morphine Sulfate (morphine) 2 mg Q4H PRN IV SEVERE PAIN LEVEL 7-10 Last administered on 05/12/16 16:02; Admin Dose 2 MG; Start 05/11/16 at 00:00 Docusate Sodium (Colace) 100 mg Q12H PRN PO CONSTIPATION; Start 05/11/16 at 00: 00 Zolpidem Tartrate (Ambien) 5 mg QHS PRN PO SLEEP Last administered on 05/13/16 00:24; Admin Dose 5 MG; Start 05/11/16 at 00:00 Pantoprazole (Protonix Iv) 40 mg BID@,18 IV Last administered on 05/13/16 06: 01; Admin Dose 40 MG; Start 05/11/16 at 18:00 Ketorolac Tromethamine (Toradol) 30 mg Q6H PRN IV PAIN; Start 05/12/16 at 06:30 ; Stop 05/15/16 at 06:29 Simethicone (Mylicon) 160 mg Q8H PRN PO DISTENSION/GAS/BLOATING Last administered on 05/13/16 06:09; Admin Dose 160 MG; Start 05/12/16 at 23:00 CK DALY May 13, 2016 10:21
--- NOTE | 2016-05-13 10:23 | PN ---
Date/Time of Note Date/Time of Note DATE: 05/13/16 TIME: 10:19 Assessment/Plan Lines/Catheters IV Catheter Type (from Nrs): Peripheral IV Assessment/Plan Chief Complaint/Hosp Course 1. Abdominal pain secondary to symptomatic cholelithiasis and cholecystitis s/ p 3 port lap leila, liver bx 05/12. -antibiotics -diet as tolerated -dc planning 2. Dark stool with possible melena. Recommend GI consultation and stool studies. 3. BMI of 31. The patient is highly encouraged to improve her diet and exercise to improve her overall health status. 4. Asthma. Continue medical management. 5. Trace leukocyte esterase on UA with probable urinary tract infection s/p antibiotics. 6. Anemia. -Monitor Thank you Problems: Subjective 24 Hr Interval Summary s/p 3 port lap leila, liver bx 05/12. Minimal pain. No f/c. No n/v. No cp/ sob. No cough. No haile. No dizzy/visual or neuro changes. No dysuria. Bowel function. Exam/Review of Systems Vital Signs Vitals Vital Signs Date Time Temp Pulse Resp B/P Pulse Ox O2 Delivery O2 Flow Rate FiO2 05/13/16 09:26 78 20 113/65 Room Air 05/13/16 07:48 98.2 90 Intake and Output 05/12/16 05/12/16 05/13/16 15:00 23:00 07:00 Intake Total 450 ml 1150 ml 480 ml Output Total 10 ml 750 ml Balance 440 ml 1150 ml -270 ml Exam Free Text/Dictation GENERAL: No acute distress, obese, comfortable. HEENT: Pupils equal and reactive. No scleral icterus. Mucous membranes are moist. NECK: Supple without JVD. No crepitus. Trachea is midline. PULMONARY: Normal respiratory effort. No wheezing. Nonlabored. CARDIAC: S1, S2 present, regular and normal rhythm. ABDOMEN: Minimal tenderness. No rebound or guarding. Obese. EXTREMITIES: No edema. VASCULAR: Cap refill less than 2 seconds. NEUROLOGIC: Alert, oriented, moves all 4 extremities grossly. PSYCHIATRIC: Normal mood and affect. LYMPHATIC: Normal cervical and inguinal lymph nodes, nonpalpable. Results Result Diagram: 05/13/16 0427 05/13/16 0427 HENRRY PABLO MD May 13, 2016 10:22
[2016-05-13] MEDS ORDERED: BISACODYL (EC) 5 MG TAB PO ONE (10:30)
[2016-05-13] MEDS ORDERED: HYDROCODONE/APAP (5/325) TAB PO PRN (11:30)
[2016-05-13] MEDS ORDERED: DOCUSATE SODIUM 100 MG CAP PO SCH (12:00)
[2016-05-13] MEDS: KETOROLAC 30 MG INJ IV SCH ×2 (12:11→17:48)
--- NOTE | 2016-05-13 16:09 | DS ---
Date/Time of Note Date/Time of Note DATE: 05/13/16 TIME: 16:05 Discharge Summary Admission/Discharge Info Admit Date/Time May 10, 2016 at 23:21 Discharge Date/Time Final Diagnosis 1. Symptomatic cholelithiasis. MRCP negative for any choledocholithiasis. The patient is scheduled for cholecystectomy today. Continue pain control. Continue empiric antibiotics. 2. Dyslipidemia. Elevated total cholesterol and suboptimal LDL. Will reinforce a low-cholesterol diet. 3. Melena. This could be probably drug induced. The patient verbalized that the patient was taking Pepto-Bismol for her abdominal discomfort. This can often cause black stools. Stool for OB pending at this time. The patient's H and H remains stable. If the patient's stool for OB is positive, will call a gastroenterology consult. 4. Obesity. BMI of 31 kg/m sq. Will advise weight reduction. Patient Condition: Stable Consults Surgery: Rosalie Procedures PROCEDURE: Ultrasound of the abdomen. 05/10/16 CLINICAL INDICATION: Right upper quadrant pain. TECHNIQUE: Sonographic images of the abdomen were performed. COMPARISON: CT scan 05/25/2014 FINDINGS: Liver: There is a 1.7 x 1.6 x 2 cm cyst within the central left hepatic lobe. There is a 1.8 x 1.7 x 1.4 cm mildly echogenic lesion within the right hepatic lobe, likely a hemangioma, as seen on previous CT. The liver is otherwise normal in echogenicity and size, measuring approximately 16.7 cm. The hepatic veins and portal veins are patent with appropriate directional flow. No intrahepatic ductal dilatation is seen. Gallbladder: Several stones are noted within the gallbladder. There is gallbladder wall thickening measuring up to 7.5 mm. No pericholecystic free fluid is seen. The common duct measures 4.0 mm. Pancreas: There is limited evaluation of the pancreatic body and tail. The visualized portions of the pancreas are unremarkable. Kidneys: The right kidney measures 9.6 x 3.8 x 4.6 cm. There is normal corticomedullary differentiation. There is no evidence of renal calculus or hydronephrosis. IVC: The visualized portion of the inferior vena cava is unremarkable. Aorta: Normal in size. Free fluid: None. IMPRESSION: Cholelithiasis with gallbladder wall thickening suggestive of cholecystitis in the appropriate clinical setting. Right hepatic hemangioma and left hepatic cyst. PROCEDURE: MRCP. 05/12/16 CLINICAL INDICATION: Evaluate for choledocholithiasis. TECHNIQUE: MRCP was performed on a high-resolution, high Luann field strength scanner. Patient was examined without contrast. 3-D coronal rotating MIP images of the biliary tree are available for review. COMPARISON: Right upper quadrant abdominal ultrasound of 05/10/2016 FINDINGS: There is cholelithiasis. There is diffuse gallbladder wall edema apparent. The biliary tree is not dilated. No intrahepatic nor extrahepatic biliary dilatation is present. No filling defect or choledocholithiasis is seen. There is no extrahepatic bile duct stricture or obstruction seen. The pancreatic duct , as visualized, is unremarkable. The patient has known hepatic cavernous hemangiomas and cyst. Small umbilical hernia containing fat. IMPRESSION: Cholelithiasis. Diffuse gallbladder wall edema. No choledocholithiasis seen. Please see above. Procedure Date: May 12, 2016 Preoperative Diagnosis 1. Cholelithiasis, symptomatic 2. Acute cholecystitis 3. BMI 31 4. Abdominal pain Postoperative Diagnosis Same Operation Performed 1. 3 port laparoscopic cholecystectomy 2. Laparoscopic liver wedge resection biopsy 3. Local anesthetic [place], [address] 4. Laparoscopic guided transversus abdominis plane block, bilateral Surgeon: HENRRY PABLO MD . Hospital Course Full details are available in the chart for review. In summary, this yo Home Meds Active Scripts Fluconazole* (Diflucan*) 150 Mg Tablet, 150 MG PO ONCE, #1 TAB Prov:REY TAVERA NP 01/03/16 Ibuprofen* (Motrin*) 600 Mg Tab, 600 MG PO Q6, #30 TAB Prov:REY TAVERA NP 01/03/16 Hydrocodone Bit-Acetaminophen* (Ariel*) 5-325 Mg Tab, 1 TAB PO Q6 Y for PAIN, # 20 TAB Prov:JACK HUNTERC 11/27/15 Lorazepam* (Ativan*) 0.5 Mg Tablet, 0.5 MG PO Q8, #10 TAB Prov:SAURAV DOS SANTOSC 11/27/15 Ondansetron Hcl* (Zofran*) 4 Mg Tablet, 4 MG PO Q6H for NAUSEA AND/OR VOMITING, #20 TAB Prov:SAURAV DOS SANTOSC 11/27/15 Ibuprofen* (Motrin*) 600 Mg Tab, 600 MG PO Q6H Y for PAIN for 10 Days, TAB Prov:LELIA HAY NP 07/12/15 Tramadol HCl (Tramadol HCl) 50 Mg Tablet, 50 MG PO BID, #20 TAB Prov:LELIA HAY NP 07/12/15 Follow-up Plan Followup with your primary doctor within the next 1-2 weeks. If you don't have one please let someone know, we can give you resources that may help you pick one. You may also call your insurance company to assign one to you. Review your medication list with your nurse before leaving and if you need new prescriptions please let your nurse know. I may have made changes to your home medications or given you new prescriptions , please let your primary doctor know as well. Stay compliant with your medications and report any side effects to your PCP or pharmacist. Return to the ER if you have any concerns and cannot reach your doctors or call your insurance company, they usually have a nurse that can help you. Pending Labs Laboratory Tests Test 05/13/16 04:27 Alanine Aminotransferase (ALT/SGPT) 71IU/L (13-69) Albumin 3.3g/dl (3.3-4.9) Albumin/Globulin Ratio 1.13 Alkaline Phosphatase 57IU/L (42-121) Anion Gap 16 (8-16) Aspartate Amino Transf (AST/SGOT) 60IU/L (15-46) Basophils # 0.010^3/ul (0.0-0.1) Basophils % 0.4% (0.0-2.0) Blood Urea Nitrogen 6mg/dl (7-20) Calcium Level 8.0mg/dl (8.4-10.2) Carbon Dioxide Level 25mmol/L (21-31) Chloride Level 109mmol/L (97-110) Creatinine 0.59mg/dl (0.44-1.00) Direct Bilirubin 0.00mg/dl (0.00-0.20) Eosinophils # 0.010^3/ul (0.0-0.5) Eosinophils % 0.0% (0.0-7.0) Globulin 2.90g/dl (1.3-3.2) Glucose Level 84mg/dl (70-220) Hematocrit 33.6% (37.0-47.0) Hemoglobin 11.4g/dl (12.0-16.0) Indirect Bilirubin 0.3mg/dl (0-1.1) Lymphocytes # 1.810^3/ul (0.8-2.9) Lymphocytes % 18.7% (15.0-51.0) Magnesium Level 2.1mg/dl (1.7-2.5) Mean Corpuscular Hemoglobin 30.4pg (29.0-33.0) Mean Corpuscular Hemoglobin Concent 33.9g/dl (32.0-37.0) Mean Corpuscular Volume 89.8fl (82.0-101.0) Mean Platelet Volume 8.5fl (7.4-10.4) Monocytes # 0.710^3/ul (0.3-0.9) Monocytes % 7.6% (0.0-11.0) Neutrophils # 6.910^3/ul (1.6-7.5) Neutrophils % 73.3% (39.0-77.0) Nucleated Red Blood Cells # 0.010^3/ul (0.0-0.0) Nucleated Red Blood Cells % 0.0/100WBC (0.0-0.0) Phosphorus Level 3.5mg/dl (2.5-4.9) Platelet Count 58501^3/UL (140-440) Potassium Level 3.6mmol/L (3.5-5.1) Red Blood Count 3.7510^6/ul (4.20-5.40) Red Cell Distribution Width 13.1% (11.5-14.5) Sodium Level 146mmol/L (135-144) Total Bilirubin 0.3mg/dl (0.2-1.3) Total Protein 6.2g/dl (6.1-8.1) White Blood Count 9.410^3/ul (4.8-10.8) CK DALY May 13, 2016 16:08
--- NOTE | 2016-05-13 17:29 | PDOCDIS ---
Discharge Instructions CONDITION Patient Condition: Stable HOME CARE INSTRUCTIONS: Special Diet: clear liquid ACTIVITY: Activity Restrictions: Slowly Increase Activity STUART WEEKS May 13, 2016 17:29
[2016-05-13] MEDS ORDERED: DOCU-144 PO (17:31)
== END 2016-05-13 19:15 | disposition home or self-care (01) | DRG 418 ==
LOC: FTE 17:04 → MS1 23:21
PROVIDERS: ADMIT Internal Medicine; ATTEND Internal Medicine
PROC: 0FB04ZX Excision of Liver, Percutaneous Endoscopic Approach, Diagnostic (ICD-10-PCS; 2016-05-12)
PROC: 0FT44ZZ Resection of Gallbladder, Percutaneous Endoscopic Approach (ICD-10-PCS; principal; 2016-05-12 09:00)
DX: K80.00 Calculus of gallbladder with acute cholecystitis without obstruction (principal); K92.1 Melena; K76.89 Other specified diseases of liver; J45.909 Unspecified asthma, uncomplicated; E78.5 Hyperlipidemia, unspecified; D64.9 Anemia, unspecified; E66.01 Morbid (severe) obesity due to excess calories; Z68.31 Body mass index [BMI] 31.0-31.9, adult; F41.9 Anxiety disorder, unspecified
CPT/HCPCS: 74181; 76705; 80048; 80053; 80061; 81001; 81003; 82270; 83036; 83690; 83735; 84100; 84703; 85025; 87086; 88304; 88307; 88313; C9113; J1100; J1885; J2175; J2250; J2270; J2405; J2543; J2710; J3010; J3480

== ENCOUNTER 2017-01-31 13:36 | Emergency (ER) | payer OTHER ==
[~2017-01-31] VITALS: Ht 157.5 cm; Wt 75.5 kg
[~2017-01-31 13:36] MED LIST changes: +DOCU-144 PO; +TRAM50TA2 PO; -ULT50 PO
[2017-01-31 13:56] VITALS: Ht 157.5 cm; Wt 75.5 kg
--- NOTE | 2017-01-31 17:46 | RADRPT ---
PROCEDURE: CT Brain without. CLINICAL INDICATION: Headache, numbness. TECHNIQUE: A CT of the brain was performed on multidetector high-resolution CT scanner utilizing a xial sections from the skull base through the vertex without contrast. The scan was reviewed in sof t tissue brain and high frequency resolution bone algorithm windows. Images were reviewed on a high -resolution PACS workstation. One or more the following does reduction techniques were utilized: Aut omated exposure control, adjustment of the mA/ or kV according to patient's size, or use of iterativ e reconstruction technique. The exam CTDI = 44.19 mGy and the DLP = 720.23 mGy-cm. COMPARISON: Brain CT 01/03/2016. FINDINGS: The ventricles and sulci are age-appropriate. There is no intracranial hemorrhage, mass effect or mi dline shift. No abnormal intra-axial or extra-axial fluid collections are seen. The blas/white martina er differentiation is preserved. No acute skull abnormality is noted. The visualized paranasal sinus es are essentially clear. IMPRESSION: 1. No acute intracranial hemorrhage, transcortical infarction or mass effect. RPTAT: HH .Otilia Roper MD, MD Date Time Electronically viewed and signed by .Otilia Roper MD, MD on 01/31/2017 17:46 .N/
--- NOTE | 2017-01-31 17:56 | RADRPT ---
PROCEDURE: CT cervical spine without contrast CLINICAL INDICATION: Right-sided numbness. Neck pain. TECHNIQUE: CT scan of the cervical spine [facility] No [facility] was administered. Coronal and sagittal reformatted images were obtained from th e axial source images. Images were reviewed on a high-resolution PACS workstation. One or more the f ollowing does reduction techniques were utilized: Automated exposure control, adjustment of the mA/ or kV according to patient's size, or use of iterative reconstruction technique. Exam CTDI = 22.35 m Gy and the DLP = 603.27 mGy-cm. COMPARISON: None available. FINDINGS: There is straightening of the alignment of the cervical spine with loss of the normal cervical lordo sis. Alignment remains intact. No acute fracture or dislocation is seen. The vertebral body heigh ts and disk spaces are preserved. No significant spinal canal or foraminal stenosis is noted. No ma ss, hematoma, or other soft tissue abnormality is seen. IMPRESSION: 1. Straightening of normal cervical lordosis. 2. No acute fracture or traumatic subluxation. RPTAT: QQ .Otilia Roper MD, MD Date Time Electronically viewed and signed by .Otilia Roper MD, MD on 01/31/2017 17:56 .N/
[2017-01-31] MEDS ORDERED: IBUP-1542 PO (18:53)
--- NOTE | 2017-01-31 18:58 | ERD ---
ER Documentation Chief Complaint Date/Time DATE: 01/31/17 TIME: 18:55 Chief Complaint CONRAD, NUMBNESS TO RIGHT FACE/ARM/LEG, DECREASED STRENGTH R SIDE. NAUSEA. HPI This 47-year-old female presents with a one-day history of sensation of right sided headache and some numbness her right side of her face. She also feels paresthesias in her right arm and right leg. She has some weakness to extension of her right hip but none her right arm. She denies any history of trauma or inciting events. She denies any fevers, shortness breath or chest pain. She denies any back pain. She has mild pain in her neck. Denies visual changes or vomiting. Patient has additional complaint of right upper quadrant abdominal pain after cholecystectomy several months. She denies fevers, vomiting related to abdominal pain. Pain appears to be positional and worse with deep breathing. ROS All systems reviewed and are negative except as per history of present illness. Medications Home Meds Active Scripts Ibuprofen* (Motrin*) 600 Mg Tab, 600 MG PO Q6, #20 TAB Prov:ZAIRA JAIN MD 01/31/17 Docusate Sodium* (Colace*) 100 Mg Capsule, 100 MG PO BID, #30 CAP Prov:STUART WEEKS 05/13/16 Fluconazole* (Diflucan*) 150 Mg Tablet, 150 MG PO ONCE, #1 TAB Prov:REY TAVERA NP 01/03/16 Ibuprofen* (Motrin*) 600 Mg Tab, 600 MG PO Q6, #30 TAB Prov:REY TAVERA NP 01/03/16 Hydrocodone Bit-Acetaminophen* ([place]*) 5-325 Mg Tab, 1 TAB PO Q6 Y for PAIN, # 20 TAB Prov:JAKC HUNTER PA-C 11/27/15 Lorazepam* (Ativan*) 0.5 Mg Tablet, 0.5 MG PO Q8, #10 TAB Prov:SAURAV DOS SANTOS PA-C 11/27/15 Ondansetron Hcl* (Zofran*) 4 Mg Tablet, 4 MG PO Q6H for NAUSEA AND/OR VOMITING, #20 TAB Prov:SAURAV DOS SANTOS PA-C 11/27/15 Ibuprofen* (Motrin*) 600 Mg Tab, 600 MG PO Q6H Y for PAIN for 10 Days, TAB Prov:LELIA HAY I. FINAL FINISHER 07/12/15 Tramadol HCl (Tramadol HCl) 50 Mg Tablet, 50 MG PO BID, #20 TAB Prov:LELIA HAY I. FINAL FINISHER 07/12/15 Allergies Allergies: Coded Allergies: No Known Allergies (Unverified Allergy, Unknown, 05/12/16) PMhx/Soc History of Surgery: No Anesthesia Reaction: No Hx Neurological Disorder: No Hx Respiratory Disorders: Yes (Asthma) Hx Cardiac Disorders: No Hx Psychiatric Problems: No Hx Miscellaneous Medical Probl: No Hx Alcohol Use: No Hx Substance Use: No Hx Tobacco Use: No Physical Exam Vitals Vital Signs Date Time Temp Pulse Resp B/P Pulse Ox O2 Delivery O2 Flow Rate FiO2 01/31/17 13:56 98.8 88 18 130/71 96 Physical Exam Const: [], [id number] per Head: Atraumatic Eyes: Normal Conjunctiva ENT: Normal External Ears, Nose and Mouth. Gums and oropharynx normal. Neck: Full range of motion..~ No meningismus. No tenderness around the C2-C3 paraspinous muscles. No midline tenderness or deformities. Resp: Clear to auscultation bilaterally Cardio: Regular rate and rhythm, no murmurs Abd: Soft, non tender, non distended. Normal bowel sounds Skin: No petechiae or rashes Back: No midline or flank tenderness Ext: No cyanosis, or edema Neur: Awake and alert. Patient does have 4-5 strength in flexion of the right hip. There is no appreciable tenderness or deformities. No calf swelling or Homans sign. No nerves II through XII grossly intact. Normal gait. No appreciable focal neurologic deficits. Psych: Normal Mood and Affect Results 24 hrs Laboratory Tests Test 01/31/17 16:55 Bedside Glucose 87mg/dL Procedures/[facility] She presents with multiple symptoms and paresthesias her right upper and right lower extremity with some weakness in flexion of the right hip. She is right- sided headache and neck pain as well. CT brain and cervical spine show no mass lesions or midline shift CT cervical spine read as normal by the radiologist. Right upper quadrant ultrasound shows normal postoperative changes without common bile duct dilatation or acute findings. Patient presents with multiple complaints of uncertain etiology. Distribution of symptoms do not correlate with central lesion. She may have cervical radicular symptoms or spinal stenosis but CT scan is normal. Patient discharged home with ibuprofen primary care follow-up and neurology evaluation for persistent symptoms. Right upper quadrant pain may be scar tissue but there is no findings of hepatitis, acute abdomen, appendicitis, additional emergent cause of abdominal pain. She should return for fevers, shortness breath, chest pain, new worsening symptoms or primary doctor this week. Departure Diagnosis: Primary Impression: Multiple complaints Additional Impressions: Pain of right arm Headache Headache type: unspecified Headache chronicity pattern: acute headache Intractability: not intractable Qualified Code: R51 - Acute nonintractable headache, unspecified headache type Condition: Stable Patient Instructions: Self-Care for Headaches, Paraesthesias Referrals: NILSA SCHMITZ MD (PCP) CLARE HENRIQUEZ MD, DEEPAK K MD Additional Instructions: Ultrasound and CT normal TODAY. See primary doctor and neurology for further evaluation treatment. Return for fevers, new symptoms. ZAIRA JAIN MD Jan 31, 2017 18:58
[2017-01-31 19:16] VITALS: BP 132/71; PULSE 67; RESP 18; TEMP 98.8
--- NOTE | 2017-01-31 19:23 | RADRPT ---
PROCEDURE: Right upper quadrant abdominal ultrasound. CLINICAL INDICATION: Abdominal pain TECHNIQUE: [place] scale and color doppler ultrasound images of the right upper quadrant of the abdom en. COMPARISON: MRI abdomen 05/12/2016 FINDINGS: Pancreas: Visualized portions appear of normal echogenicity without focal lesions. Liver: Morphology:Normal in size. Contour:Normal, no evidence of nodularity. Echogenicity: Normal. Focal lesions:None. Main portal vein: Patent with hepatopetal flow. Biliary System: Gallbladder wall: Surgically absent Gallstones: None. Intrahepatic bile ducts: Normal caliber. Common bile duct diameter (mm): 2.2 Kidneys: Right length (cm) : 10.1 Right cortical thickness: Normal. Echogenicity: Normal. Hydronephrosis: None. Renal calculi: None. Focal lesions: None. Free fluid/ascites: None. Abdominal aorta: Not visualized by the continuous washer operator. Other findings: None. IMPRESSION: Status post cholecystectomy. Normal caliber intrahepatic and extrahepatic biliary system. No focal fluid collections are seen. RPTAT: AADD .Rafita Calle MD, MD Date Time Electronically viewed and signed by .Rafita Calle MD, on 01/31/2017 19:22 .B/
== END 2017-01-31 19:17 | disposition home or self-care (01) ==
LOC: FTE 13:36
DX: M79.601 Pain in right arm (principal); R20.0 Anesthesia of skin; J45.909 Unspecified asthma, uncomplicated
CPT/HCPCS: 70450; 72125; 76705; 82962; Z7502